=== PATIENT | female | born 1945 | race Caucasian/White ===

== ENCOUNTER → 2017-02-16 | Outpatient (CLI) | payer OTHER, MEDICARE | LOC: FIMAGING 12:18 | PROVIDERS: ATTEND Family Medicine | DX: Z12.31 Encounter for screening mammogram for malignant neoplasm of breast (principal) | CPT/HCPCS: G0202 ==

== ENCOUNTER 2017-06-27 00:37 | Emergency (ER) | payer OTHER, MEDICARE ==
[2017-06-27] MEDS ORDERED: IPRATROPIUM/ALBUTEROL 3 ML DEYVIAL ONE (00:53)
[2017-06-27] MEDS ORDERED: IPRATROPIUM/ALBUTEROL 3 ML DEYVIAL IH ONE (00:56)
--- NOTE | 2017-06-27 01:44 | EDPHY ---
H & P Stated Complaint: COUGH FOR PAST 5 DAYS Time Seen by Provider: 06/27/17 01:09 HPI/ROS: HPI The patient presents with cough and shortness of breath for the last 2 days, getting progressively worse. She has been sick with congestion, rhinorrhea, sore throat for the last 1 week. Then she developed a dry cough which was persistent and severe. This was associated with shortness of breath. She has not had a fever. Her grandson does have a cough currently and she has been exposed to him. She does have a history of seasonal allergies. She does not have any chest pain, leg swelling, exertional dyspnea. She has no prior history of similar. She tried [id number] cough medications without any improvement. REVIEW OF SYSTEMS Constitutional: No fever, no chills. Eyes: No discharge. ENT: Positive for sore throat. Cardiovascular: No chest pain, no palpitations. Respiratory: See HPI Gastrointestinal: No abdominal pain, no vomiting. Genitourinary: No hematuria. Musculoskeletal: No back pain. Skin: No rashes. Neurological: No headache. PMHx: osteoporosis, GERD, followed by Dr. Henry Soc Hx: non smoker PHYSICAL General Appearance: Alert, no distress Eyes: Pupils equal and round no pallor or injection ENT, Mouth: Mucous membranes moist, hard palate with several 1-2 mm ulcerations Respiratory: There are no retractions, lungs are clear to auscultation crackles Cardiovascular: Regular rate and rhythm Gastrointestinal: Abdomen is soft and non-tender, no masses, bowel sounds normal Neurological: A&O, moves all extremities Skin: Warm and dry, no rashes Musculoskeletal: Neck is supple non tender Extremities: symmetrical, full range of motion Psychiatric: Patient is oriented X 3, there is no agitation Source: Patient Exam Limitations: No limitations - Personal History Current Tetanus/Diphtheria Vaccine: Yes Current Tetanus Diphtheria and Acellular Pertussis (TDAP): Yes - Medical/Surgical History Hx Asthma: No Hx Chronic Respiratory Disease: No Hx Diabetes: No Hx Cardiac Disease: No Hx Renal Disease: No Hx Cirrhosis: No Hx Alcoholism: No Hx HIV/AIDS: No Hx Splenectomy or Spleen Trauma: No Other PMH: APPY, GERD, DEPRESSION - Social History Smoking Status: Never smoked Constitutional: Initial Vital Signs Temperature (C) 36.9 C 06/27/17 00:38 Heart Rate 82 06/27/17 00:38 Respiratory Rate 18 06/27/17 00:38 Blood Pressure 148/84 H 06/27/17 00:38 O2 Sat (%) 93 06/27/17 00:38 O2 Delivery Mode Room Air Allergies/Adverse Reactions: niacin Allergy (Verified 06/27/17 00:44) ranitidine [From Zantac] Allergy (Verified 06/27/17 00:43) Home Medications: Medication Instructions Recorded Codeine Phosphate/Guaifenesin 120 ml PO Q6H PRN #5 liquid 06/27/17 [Codeine-Guaifen 10-100 mg/5 ml] Medical Decision Making Differential Diagnosis: This is a 72-year-old female who has seasonal allergies, GERD who presents with cough and shortness of breath over the last 2 days in the setting of rhinorrhea , sore throat, congestion over the last 1 week. On exam, she has normal vital signs and is generally well-appearing. She received a DuoNeb prior to my assessment and now is feeling much better. Initially she had wheezing and now her lungs are clear. I suspect she is suffering from a viral URI and is having some reactive airways. Chest x-ray was relatively unremarkable demonstrated no infiltrate. She does not have a history of asthma or COPD and has a remote smoking history. She has had a cough with wheeze previously though. I did consider cardiac wheeze, however given her symptoms improved with an inhaler and she has a recent URI without any chest pain or leg swelling, I feel this is unlikely. I will discharge her with albuterol and cough medication per her request. I have advised her that she needs follow up with her doctor in 1-2 days unless she is better. She is in agreement with this plan. - Data Points Medications Given: Discontinued Medications Albuterol Sulfate (Proventil Inh Prepack) 1 mdi TAKEHOME EDNOW ONE Stop: 06/27/17 02:09 Last Admin: 06/27/17 02:25 Dose: 1 mdi Albuterol/Ipratropium (Duoneb) 3 ml IH EDNOW ONE Stop: 06/27/17 00:57 Last Admin: 06/27/17 00:58 Dose: 3 ml Guaifenesin/Codeine Phosphate (Robitussin Ac) 10 ml PO EDNOW ONE Stop: 06/27/17 02:09 Last Admin: 06/27/17 02:24 Dose: 10 ml Departure - Departure Disposition: Home, Routine, Self-Care Clinical Impression: Cough Upper respiratory infection Qualifiers: URI type: unspecified viral URI Qualified Code(s): J06.9 - Acute upper respiratory infection, unspecified Condition: Good Instructions: Albuterol (By breathing), Acute Cough (ED), Wheezing (ED) Additional Instructions: Please return if you are worse in way. Please make sure to use the albuterol every 2 hr as needed. If you are not better in a few days, you should return to the emergency department or see your regular doctor. In the morning, the radiologist will review the chest x-ray and if there are any findings that they see that I have missed we will call you at home. Referrals: Rita oClvin MD [Primary Care Provider] - As per Instructions Prescriptions: Codeine Phosphate/Guaifenesin [Codeine-Guaifen 10-100 mg/5 ml] 120 ml PO Q6H PRN #5 liquid PRN Reason: Cough, Moderate
[2017-06-27] MEDS ORDERED: guaiFENesin/CODEINE PHOS 10 ML UDCUP PO ONE (02:08)
[2017-06-27] MEDS ORDERED: ALBUTEROL INH PREPACK MDI TAKEHOME ONE (02:08)
[2017-06-27 02:32] VITALS: BP 112/80
== END 2017-06-27 02:32 | disposition home or self-care (01) ==
DX: J06.9 Acute upper respiratory infection, unspecified (principal)

== ENCOUNTER → 2018-01-10 | Outpatient (CLI) | payer OTHER, MEDICARE | LOC: FIMAGING 14:05 | PROVIDERS: ATTEND Family Medicine | DX: Z13.820 Encounter for screening for osteoporosis (principal); Z78.0 Asymptomatic menopausal state; M81.0 Age-related osteoporosis without current pathological fracture ==

== ENCOUNTER → 2018-02-21 | Outpatient (CLI) | payer OTHER, MEDICARE | LOC: FIMAGING 13:17 | PROVIDERS: ATTEND Family Medicine | DX: Z12.31 Encounter for screening mammogram for malignant neoplasm of breast (principal) ==

== ENCOUNTER → 2018-07-23 | Outpatient (CLI) | payer OTHER, MEDICARE | LOC: FIMAGING 14:08 | PROVIDERS: ATTEND Orthopaedic Surgery | DX: M17.11 Unilateral primary osteoarthritis, right knee (principal); M25.461 Effusion, right knee ==

== ENCOUNTER 2018-08-15 07:04 | Observation (INO) | payer OTHER, MEDICARE | END 2018-08-16 11:51 | disposition home or self-care (01) | LOC: F3N 07:04 ==